=== PATIENT | male | born 1995 | race Two or more races ===

== ENCOUNTER 2022-03-28 10:18 | Emergency (ER) | payer MEDICARE, OTHER ==
[~2022-03-28] VITALS: Ht 182.9 cm; Wt 90.7 kg
[2022-03-28] MEDS ORDERED: SODIUM CHLORIDE 0.9% 1,000 ML IV ONE (10:30)
[2022-03-28] MEDS ORDERED: LORazepam 2MG/ML-1ML VIAL IV ONE (11:00)
[2022-03-28 11:05] LABS: Basophils # (auto) 0 10 ^3/uL (0-0.2); Basophils % (auto) 0.5 % (0.0-2.0); Eosinophils # (auto) 0 10 ^3/uL (0-0.8); Eosinophils % (auto) 0.5 % (0.0-7.0); Hemoglobin 15.7 g/dL (13.5-17.5); Lymphocytes # (auto) 1.5 10 ^3/uL (0.4-5.4); Lymphocytes % (auto) 22.1 % (10.0-50.0); Mean Corpuscular Hemoglobin 29.1 pg (28.0-32.0); Mean Corpuscular Hgb Conc. 32.7 g/dL (32.0-36.0); Mean Corpuscular Volume 88.7 fL (80.0-100.0); Monocytes # (auto) 0.7 10 ^3/uL (0-1.3); Monocytes % (auto) 10.4 % (0.0-12.0); Neutrophils # (auto) 4.6 10 ^3/uL (1.6-8.6); Neutrophils % (auto) 66.5 % (37.0-80.0); Nucleated Red Blood Cells % 0.1 %; Red Blood Cells 5.41 10^6/uL (4.5-5.90)
[2022-03-28 11:28] LABS: Albumin 3.7 g/dL (3.4-5.0); BUN/Creatinine Ratio 10.3; Calcium 9.1 mg/dL (8.5-10.1); Potassium 4.2 mmol/L (3.5-5.1)
[2022-03-28 11:31] LABS: Bilirubin, Total 0.2 mg/dL (0.2-1.0); Total Protein 7.9 g/dL (6.4-8.2)
[2022-03-28 14:00] VITALS: BP 111/70
== END 2022-03-28 15:29 | disposition home or self-care (01) ==
LOC: ER 10:18
DX: G40.909 Epilepsy, unspecified, not intractable, without status epilepticus (principal)
CPT/HCPCS: 36415; 70450; 80053; 85025; 93005; 96361; 96374; 99285; J2060; J7030

== ENCOUNTER 2022-04-20 14:01 | Emergency (ER) | payer MEDICARE, OTHER ==
[~2022-04-20] VITALS: Ht 185.4 cm; Wt 90.7 kg
[2022-04-20 14:01] VITALS: BP 126/88
[2022-04-20] MEDS ORDERED: LORazepam 2MG/ML-1ML VIAL IM ONE (14:30)
== END 2022-04-20 16:20 | disposition left against medical advice (07) ==
LOC: EDBD 14:01 → EDUNIT# 14:01 → ER 14:04
DX: G40.909 Epilepsy, unspecified, not intractable, without status epilepticus (principal)
CPT/HCPCS: 93005; 96372

== ENCOUNTER 2023-05-08 13:46 | Emergency (ER) | payer OTHER ==
[~2023-05-08] VITALS: Ht 182.9 cm; Wt 90.9 kg
[2023-05-08] MEDS ORDERED: LORazepam 2MG/ML-1ML VIAL IV ONE (15:00)
[2023-05-08] MEDS ORDERED: SODIUM CHLORIDE 0.9% 1,000 ML IVB ONE (15:00)
[2023-05-08 15:21] LABS: Basophils # (auto) 0 10 ^3/uL (0-0.2); Basophils % (auto) 0.5 % (0.0-2.0); Eosinophils # (auto) 0.1 10 ^3/uL (0-0.8); Eosinophils % (auto) 1.8 % (0.0-7.0); Hematocrit 44.3 % (41.0-53.0); Hemoglobin 14.8 g/dL (13.5-17.5); Lymphocytes # (auto) 1.5 10 ^3/uL (0.4-5.4); Lymphocytes % (auto) 22.5 % (10.0-50.0); Mean Corpuscular Hemoglobin 28.7 pg (28.0-32.0); Mean Corpuscular Hgb Conc. 33.4 g/dL (32.0-36.0); Mean Corpuscular Volume 85.9 fL (80.0-100.0); Monocytes # (auto) 0.5 10 ^3/uL (0-1.3); Monocytes % (auto) 7.8 % (0.0-12.0); Neutrophils # (auto) 4.6 10 ^3/uL (1.6-8.6); Neutrophils % (auto) 67.4 % (37.0-80.0); Nucleated Red Blood Cells % 0.2 %; Red Blood Cells 5.16 10^6/uL (4.5-5.90); Red Cell Distribution Width 13.8 % (11.8-14.3); White Blood Cell 6.8 10^3/uL (4.4-10.8)
[2023-05-08 15:52] LABS: Alcohol, Urine < 3.0 mg/dL (0-10); Amphetamine Screen, Urine NEGATIVE (NEGATIVE); Barbiturate Scree,Urine NEGATIVE (NEGATIVE); Benzodiazephine Screen, Urine NEGATIVE (NEGATIVE); Cannabinoid Screen, Urine NEGATIVE (NEGATIVE); Cocaine Screen, Urine NEGATIVE (NEGATIVE); Opiate Scree,Urine NEGATIVE (NEGATIVE); Phencyclidine Screen, Urine NEGATIVE (NEGATIVE)
[2023-05-08 15:58] LABS: Chloride 113 mmol/L (98-107); Potassium 3.6 mmol/L (3.5-5.1); Sodium 140 mmol/L (136-145)
[2023-05-08 16:09] LABS: Alanine Aminotransferase 29 U/L (16-61); Albumin 3.8 g/dL (3.4-5.0); Alkaline Phosphatase 114 U/L (45-117); Anion Gap 4 (5-15); Aspartate Aminotransferase 22 U/L (15-37); BUN/Creatinine Ratio 10.7 (10.0-20.0); Bilirubin, Total 0.2 mg/dL (0.2-1.0); Blood Alcohol < 3.0 mg/dL (<10); Blood Urea Nitrogen 14 mg/dL (7-18); Calcium 8.7 mg/dL (8.5-10.1); Carbon Dioxide 23 mmol/L (21-32); GFR African American 83 mL/min; GFR Non-African American 68 mL/min; Glucose 101 mg/dL (74-106); Magnesium 2.4 mg/dL (1.6-2.6)
[2023-05-08 17:00] VITALS: BP 118/79; PULSE 73; RESP 16; TEMP 98.4; O2SAT 96
[2023-05-08] MEDS ORDERED: VALPROIC ACID 250 MG/5 ML ORAL SOLN PO ONE (18:15)
== END 2023-05-08 18:39 | disposition home or self-care (01) ==
LOC: ER 13:46 → EDBD 13:46 → ER 18:19
DX: G40.909 Epilepsy, unspecified, not intractable, without status epilepticus (principal); R51.9 Headache, unspecified
CPT/HCPCS: 36415; 80053; 80164; 80307; 80320; 83735; 85025; 96361; 96374; 99285; J2060; J7030

== ENCOUNTER 2025-08-18 13:57 | Emergency (ER) | payer OTHER, MEDICAID ==
[~2025-08-18] VITALS: Ht 188 cm; Wt 90.9 kg
[2025-08-18 13:58] VITALS: BP 129/86; PULSE 71; RESP 20; TEMP 98.9; O2SAT 100
[2025-08-18] MEDS ORDERED: LORazepam 0.5 MG TAB PO ONE (14:45)
--- NOTE | 2025-08-18 14:57 | ED.PDOC ---
History of Present Illness HPI Comments 30-year-old male CHIDI with prior medical history of autism, epileptic seizure and the chief complaint of a possible seizure. EMS report the they got called out to a bus where the furnace combustion tester called stating the one of his passenger's is having a possible seizure. EMS arrived on scene and was non postictal/at raumatic. Patient did have a blood sugar of 129 on scene. Denies any other symptoms at this time. Denies chills, fever, N/V/D, SOB, CP. No other associated symptoms, modifiers, recent injuries or sick contacts present at this time. Chief Complaint: Seizure Time Seen by MD: 15:00 Primary Care Provider: UNKNOWN Reviewed Notes: Nurses Notes, Medications, Allergies Allergies: Coded Allergies: NO KNOWN ALLERGIES (Unverified , 03/28/22) Information Source: Emergency Med Personnel Mode of Arrival: EMS Severity: Moderate Timing: Minutes Duration: Since onset, Minutes Prehospital treatment: None Past Medical History PAST MEDICAL HISTORY: Seizures (Epileptic) Past Medical History (Other): Autism Surgical History: Denies all surgeries Family History Family History: Reviewed,noncontributory to illness, Unknown Social History Smoker: Non-Smoker Alcohol: Denies ETOH Use Drugs: Denies Drug Use Lives In: Home Constitutional: denies: chills, diaphoresis, fatigue, fever, malaise, sweats, weakness, others EENTM: denies: blurred vision, double vision, ear bleeding, ear discharge, ear drainage, ear pain, ear ringing, eye pain, eye redness, hearing loss, mouth pain, mouth swelling, nasal discharge, nose bleeding, nose congestion, nose pain, photophobia, tearing, throat pain, throat swelling, voice changes, others Respiratory: denies: cough, hemoptysis, orthopnea, SOB at rest, shortness of breath, SOB with excertion, stridor, wheezing, others Cardiovascular: denies: chest pain, dizzy spells, diaphoresis, Dyspnea on exertion, edema, irregular heart beat, left arm pain, lightheadedness, palpitations, PND, syncope, others Gastrointestinal: denies: abdomen distended, abdominal pain, blood streaked bowels, constipated, diarrhea, dysphagia, difficulty swallowing, hematemesis, melena, nausea, poor appetite, poor fluid intake, rectal bleeding, rectal pain, vomiting, others Genitourinary: denies: burning, dysuria, flank pain, frequency, hematuria, incontinence, penile discharge, penile sore, pain, testicle pain, testicle swelling, urgency, others Neurological: reports: seizure (Possible); denies: dizziness, fainting, headache, left sided numbness, left sided weakness, numbness, paresthesia, pre- existing deficit, right sided numbness, right sided weakness, speech problems, tingling, tremors, weakness, others Musculoskeletal: denies: back pain, gout, joint pain, joint swelling, muscle pain, muscle stiffness, neck pain, others Integumetry: denies: bruises, change in color, change in hair/nails, dryness, laceration, lesions, lumps, rash, wounds, others Allergic/Immunocompromised: denies: Difficulty Healing, Frequent Infections, Hives, Itching, others Hematologic/Lymphatic: denies: anemia, blood clots, easy bleeding, easy bruising, swollen glands, others Endocrine: denies: excessive hunger, excessive sweating, excessive thirst, excessive urination, flushing, intolerance to cold, intolerance to heat, unexplained weight gain, unexplained weight loss, others Psychiatric: denies: anxiety, bipolar disorder, depression, hopeless, panic disorder, schizophrenia, sleepless, suicidal, others All Other Systems: Reviewed and Negative Physical Exam General Appearance: Moderate Distress, Normal HEENT: Normal ENT Inspection, Pharynx Normal, TMs Normal Neck: Full Range of Motion, Non-Tender, Normal, Normal Inspection Respiratory: Chest Non-Tender, Lungs Clear, No Accessory Muscle Use, No Respiratory Distress, Normal Breath Sounds Cardiovascular: No Edema, No JVD, No Murmur, No Gallop, Normal Peripheral Pulses, Regular Rate/Rhythm Breast Exam: Deferred Gastrointestinal: No Organomegaly, Non Tender, No Pulsatile Mass, Normal Bowel Sounds, Soft Genitalia: Deferred Pelvic: Deferred Rectal: Deferred Extremities: No calf tenderness, Normal capillary refill, Normal inspection, Normal range of motion, Non-tender, No pedal edema Musculoskeletal : Apperance: Normal Neurologic: Alert, contract runner II-XII nml as Tested, No Motor Deficits, Normal Affect, Normal Mood, No Sensory Deficits Cerebellar Function: Normal Reflexes: Normal Skin: Dry, Normal Color, Warm Peripheral Pulses: 3+ Radial (R), 3+ Radial (L) Lymphatic: No Adenopathy Was a procedure done? Was a procedure done?: No Differential Dx Considerations may include: Psychogenic seizure Anxiety X-Ray, Labs, Meds, VS Vital Signs Date Time Temp Pulse Resp B/P (MAP) Pulse Ox O2 Delivery O2 Flow Rate FiO2 08/18/25 13:58 98.9 71 20 129/86 100 98.9 Patient alert. Came in because of possible seizure. Vitals stable. Answering all questions. No injuries. Mentating well. Insists on going home. Explained to the patient. Was told to follow up with his primary care physician. Was told to come back if there is any problem. Time of 1ST Reevaluation: 15:30 Reevaluation 1ST: Improved Patient Education/Counseling: Diagnosis, Treatment, Prognosis, Other (Patient does have autism) Family Education/Counseling: No Family Present SEPSIS Sepsis Screen Vital Signs Date Time Temp Pulse Resp B/P (MAP) Pulse Ox O2 Delivery O2 Flow Rate FiO2 08/18/25 13:58 98.9 71 20 129/86 100 98.9 Departure 1 Departure Time of Disposition: 16:33 Impression: Primary Impression: Seizure disorder Disposition: 01 HOME / SELF CARE / HOMELESS Condition: Good Discharged With: Self Critical Care Note Critical Care Time?: No Stability Stability form required: No Heart Score Heart Score: Heart Score Response (Comments) Value History N/A 0 EKG N/A 0 Age N/A 0 Risk Factors N/A 0 Troponin N/A 0 Total 0 I personally scribed for KARL LANE MD ([email or web address]) on 08/18/25 at 14:57. Electronically submitted by Kevin Diaz ([email or web address]). KARL LANE MD Aug 18, 2025 14:57
== END 2025-08-18 17:08 | disposition left against medical advice (07) ==
LOC: EDBD 13:57 → ER 13:57
DX: G40.909 Epilepsy, unspecified, not intractable, without status epilepticus (principal); F84.0 Autistic disorder; Z79.899 Other long term (current) drug therapy